=== PATIENT | male | born 1965 | race Caucasian/White ===

== ENCOUNTER 2021-09-13 08:34 | Emergency (ER) | payer MEDICARE, OTHER, SELFPAY ==
--- NOTE | 2021-09-13 08:40 | ED.MALEGU ---
HPI - Male Genitourinary General Chief complaint: Back Pain/Injury Stated complaint: kidney stones Time Seen by Provider: 09/13/21 08:37 Source: patient Mode of arrival: Ambulatory Limitations: no limitations History of Present Illness HPI Narrative: This is a 55-year-old male with history of hypertension, dyslipidemia and kidney stones. Patient states he has had 14 in the past total. Patient states that he developed left flank pain and some tingling with urination recently pain is becoming more intense. He denies fevers or chills. Denies any active nausea or vomiting. He states pain seems localized just to the left but comes run a little bit to the front. He denies any dysuria, frequency or obvious hematuria. Denies any diarrhea constipation or issues with bowel movements. He denies surgeries he did have ureteral stent with lithotripsy once in the s. He does not have a local urologist. He moved here about a year ago. Primary care is Dr. Gray. Denies tobacco, alcohol or illicit. He has not taken anything for pain today. He denies any allergies to medications. Related Data Previous Rx's Medication Instructions Recorded oxycodone 5 mg tablet 5 mg PO Q6H PRN pain #14 tabs 09/13/21 tamsulosin 0.4 mg capsule (Flomax) 0.4 mg PO DAILY #7 caps 09/13/21 Review of Systems Review of Systems ROS Unobtainable: All systems reviewed & are unremarkable except as noted in HPI and below Exam Narrative Exam Narrative: GENERAL: Alert and oriented x three, wheeze male in mild distress. HEENT: Head normocephalic, atraumatic, EOMI, pupils reactive, face symmetric, moist mucous membranes NECK: Supple, full range of motion CARDIOVASCULAR: Regular rate and rhythm without murmurs, rubs or gallops. RESPIRATORY: Breath sounds equal bilaterally, no wheezes rales or rhonchi. ABDOMEN: Soft, mild left-sided tenderness. Normoactive bowel sounds all 4 quadrants. No guarding or rebound, rigidity, no mass : Negative for bilateral CVA tenderness EXTREMITIES: Normal range of motion, no clubbing or edema. Neurovascularly intact NEUROLOGICAL: Cranial nerves II through XII grossly intact. Moving all extremities SKIN: Warm, dry, no petechiae, no rashes or lesions. Initial Vital Signs Initial Vital Signs: Vital Signs Temperature 97.9 F 09/13/21 08:41 Pulse Rate 71 09/13/21 08:41 Respiratory Rate 16 09/13/21 08:41 Blood Pressure 174/85 H 09/13/21 08:41 Pulse Oximetry 97 09/13/21 08:41 Oxygen Delivery Method 09/13/21 08:41 Course Orders Ordered: Discontinued Medications Sodium Chloride (Normal Saline 0.9%) 1,000 mls @ 1,000 mls/hr IV BOLUS ONE Stop: 09/13/21 09:48 Last Admin: 09/13/21 09:02 Dose: 1,000 mls/hr Documented By: SANDRA Ketorolac Tromethamine (Ketorolac 30 Mg/Ml Vial) 15 mg IV NOW ONE Stop: 09/13/21 08:50 Last Admin: 09/13/21 09:02 Dose: 15 mg Documented By: SANDRA Ondansetron HCl (Ondansetron 4 Mg/2 Ml Inj) 4 mg IV Q6HR PRN PRN Reason: Nausea And Vomiting Last Admin: 09/13/21 09:03 Dose: 4 mg Documented By: SANDRA Tamsulosin HCl (Tamsulosin 0.4 Mg Capsule) 0.4 mg PO NOW ONE Stop: 09/13/21 09:55 Last Admin: 09/13/21 10:09 Dose: 0.4 mg Documented By: HELGA Reevaluation(s) Reevaluation #1: Patient's pain has resolved. Reviewed his findings today. He has some cvkn-dx-kajohmdo hydro he states this feels similar is stones that he has passed previously and feels comfortable deferring CT scanning. Renal function was appropriate. He does not have any signs of infection. We discussed return precautions all questions answered. Time: 10:01 Vital Signs Vital signs: Vital Signs - 8 hr 09/13/21 08:41 Temperature 97.9 F Pulse Rate 71 Respiratory Rate 16 Blood Pressure 174/85 H Pulse Oximetry 97 Oxygen Delivery Method Room Air MDM - Male Genitourinary Lab Data Result diagrams: 09/13/21 08:58 09/13/21 08:58 Labs: Lab Results 09/13/21 09/13/21 09/13/21 Range/Units 08:52 08:58 08:58 WBC 5.5 (4.5-11.0) X10^3/uL RBC 4.56 (4.5-5.9) X10^6/uL Hgb 14.2 (13.5-17.5) g/dL Hct 42.1 (41-53) % MCV 92.4 (80-100) fL MCH 31.1 (26-34) PG MCHC 33.7 (30-36) % RDW 13.8 (11.6-14.8) % Plt Count 256 (150-400) X10^3/uL Neut % (Auto) 46.5 L (50-75) % Lymph % (Auto) 41.2 H (25-40) % [place] % (Auto) 10.4 (3-14) % Eos % (Auto) 0.9 L (2-4) % Baso % (Auto) 1.0 (0-2) % Neut # (Auto) 2600 (1346-3109) /uL Lymph # (Auto) 2300 (2540-9659) /uL [place] # (Auto) 600 (0-900) /uL Eos # (Auto) 100 (0-450) /uL Baso # (Auto) 100 (0-100) /uL Sodium 140 (137-145) mmol/L Potassium 4.3 (3.4-5.1) mmol/L Chloride 107 (98-107) mmol/L Carbon Dioxide 30 (22-32) mmol/L BUN 19 (9-20) mg/dL Creatinine 1.17 (0.66-1.25) mg/dL Estimated GFR > 60 (>60) mL/min BUN/Creatinine Ratio 16.2 (6-22) Glucose 104 H (70-100) mg/dL Calcium 8.9 (8.4-10.2) mg/dL Total Bilirubin 0.9 (0.2-1.3) mg/dL AST 34 (17-59) IU/L ALT 32 (<50) IU/L Alkaline Phosphatase 60 (38-126) U/L Total Protein 7.5 (6.3-8.2) g/dL Albumin 4.2 (3.5-5.0) g/dL Globulin 3.3 (1.7-4.1) g/dL Albumin/Globulin Ratio 1.3 (1.0-2.8) Lipase 103 (23-300) U/L Urine RBC 5-10/hpf H (0-5/HPF) Urine WBC None seen (0-5/HPF) Ur Squamous Epith Cells None seen (0-5/HPF) Urine Bacteria None seen (None) Ur Culture Indicated? Cult not indicated Urine Dip Bedside Urine Glucose Negative Bedside Urine Bilirubin - Negative Bedside Urine Ketone - Negative Urine Specific [place] 1.015 Bedside Urine Occult Blood +++ Bedside Urine pH 6.5 Bedside Urine Protein - Negative Bedside Urine Urobilinogen 0.2 Bedside Urine Nitrite - Negative Bedside Urine Leukocytes - Negative Esterase Imaging Data US - abdomen: Radiologist's Impression: [address] [address] Ultrasound Report Signed Patient: Joey Oh MR#: [id number] : 1965 Acct:[id number] Age/Sex: 55 / M Date of Service: 09/13/21 Loc: ED Accession Number: [id number] ?? Procedure: US renal complete Ordering Provider: Manasa Coles D.O. PROCEDURE:? US RENAL COMPLETE ? INDICATIONS:? LEFT FLANK PAIN; HX STONES ? TECHNIQUE:? Real-time scanning was performed of the kidneys and bladder, with image documentation.? ? COMPARISON:? None. ? FINDINGS:? ? Kidneys:? Kidneys are normal in size.? Right kidney measures 12.6 cm long; left kidney measures 14.2 cm long.? Right renal cortical thickness is 1.8 cm; left renal cortical thickness is 2 cm.? Renal cortical echotexture is normal.? No nephrolithiasis.? No suspicious solid mass lesions.? ? There is moderate to prominent left-sided hydronephrosis. ? At the inferior pole of the right kidney, a 2.1 cm simple cyst is seen. ? Bladder:? Pre-void bladder volume is 201 mL.? Post-void residual is 0 mL.? Pre-void images demonstrate no intraluminal masses or stones.? On pre-void images, neither of the ureteral jets are noted with color Doppler interrogation.? (Of note, ureteral jets may not be detectable in up to 25% of cases due to insufficient differences in specific gravity between ureteral and bladder urine).? ? Miscellaneous:? No free pelvic fluid.? IMPRESSION:? Moderate to severe left-sided hydronephrosis. ? No stones are seen on this study. ? If it would be helpful for clinical management decision making in this patient with this given history, please consider a dedicated noncontrast CT of the abdomen pelvis for further evaluation. ? ? Dictated by: Colt Carrizales M.D. on 09/13/2021 at 8:39 ? ? Approved by: Colt Carrizales M.D. on 09/13/2021 at 8:40?? MDM Narrative Medical decision making narrative: This is a 55-year-old male with history of kidney stones with acute onset of left flank pain which he states is very similar to his prior episodes of kidney stones. He typically passes them he has had 1 prior intervention the required a ureteral stent and basket retrieval remotely. Patient has some mild tenderness on abdominal exam but no other acute findings. He is positive for hematuria without signs of infection on urine dip, microscopy shows Hematuria but no signs of infection. Renal function is normal with no other major abnormalities. Patient had renal ultrasound ordered, will upgrade to CT if there appears to be renal impairment or other major lab abnormalities. Renal ultrasound shows eyio-ql-jafztpuj hydro, stone not clearly identified. Patient and I discussed this feels similar to his prior episodes where he has passed stones and defers CT imaging at this time. Plan for Flomax, pain control, Urology referral and return precautions discussed with patient. Discharge Plan Departure Patient Disposition: Home Clinical Impression: Kidney stone on right side Instructions: DI for Kidney Stones Activity Restrictions/Additional Instructions: Follow-up with urology if your symptoms do not resolve this week. You may take Tylenol up to a 1000 mg every 6 hours and/or ibuprofen up to 600 mg every 6 hours. Maximum dose of Tylenol in 24 hours is 4000 mg, maximum dose of ibuprofen in 24 hours is 2400 mg. If in adequate you may take oxycodone 1-2 tablets every 6 hours in addition to this. This medication can make you sleepy do not drive, perform hazardous activities or make any major decisions while taking it. This medication will make you constipated please take a stool softener once to twice daily until stools are soft and regular. Take Flomax once daily until gone. Prescription sent to Please return for fevers, rapidly worsening or unable to control abdominal, back or flank pain, persistent vomiting, difficulty or inability urinate or other new or concerning symptoms. Prescriptions: New tamsulosin [Flomax] 0.4 mg capsule 0.4 mg PO DAILY Qty: 7 0RF oxycodone 5 mg tablet 5 mg PO Q6H PRN (Reason: pain) Qty: 14 0RF Referrals: Ariel Gray MD [Primary Care Provider] - Juan Diego Acosta MD [Physician] - Visit Report Forms: Patient Portal/API
[2021-09-13 08:41] VITALS: BP 174/85; PULSE 71; RESP 16; TEMP 36.6; O2SAT 97; BMI 39.9
--- NOTE | 2021-09-13 08:49 | DI.US.S_ITS ---
PROCEDURE: US RENAL COMPLETE INDICATIONS: LEFT FLANK PAIN; HX STONES TECHNIQUE: Real-time scanning was performed of the kidneys and bladder, with image documentation. COMPARISON: None. FINDINGS: Kidneys: Kidneys are normal in size. Right kidney measures 12.6 cm long; left kidney measures 14.2 cm long. Right renal cortical thickness is 1.8 cm; left renal cortical thickness is 2 cm. Renal cortical echotexture is normal. No nephrolithiasis. No suspicious solid mass lesions. There is moderate to prominent left-sided hydronephrosis. At the inferior pole of the right kidney, a 2.1 cm simple cyst is seen. Bladder: Pre-void bladder volume is 201 mL. Post-void residual is 0 mL. Pre-void images demonstrate no intraluminal masses or stones. On pre-void images, neither of the ureteral jets are noted with color Doppler interrogation. (Of note, ureteral jets may not be detectable in up to 25% of cases due to insufficient differences in specific gravity between ureteral and bladder urine). Miscellaneous: No free pelvic fluid. IMPRESSION: Moderate to severe left-sided hydronephrosis. No stones are seen on this study. If it would be helpful for clinical management decision making in this patient with this given history, please consider a dedicated noncontrast CT of the abdomen pelvis for further evaluation. Dictated by: Colt Carrizales M.D. on 09/13/2021 at 8:39 Approved by: Colt Carrizales M.D. on 09/13/2021 at 8:40
[2021-09-13 09:00] LABS: RBC Urine 5-10/HPF (0-5/HPF)
[2021-09-13 09:01] LABS: Bacteria Urine None Seen; Culture Indicated Urine Cult Not Indicated; Squamous Epithelial Cell Urine None Seen (0-5/HPF); WBC Urine None Seen (0-5/HPF)
[2021-09-13] MEDS: SODIUM CHLORIDE 0.9% 1,000 ML 1000 ML IV (09:02)
[2021-09-13] MEDS: KETOROLAC 30 MG/ML VIAL 15 MG IV (09:02)
[2021-09-13] MEDS: ONDANSETRON 4 MG/2 ML INJ IV (09:03)
[2021-09-13 09:08] LABS: Add Manual Diff / Slide Review NO; Basophils Absolute Auto 100 /uL (0-100); Eosinophils Absolute Auto 100 /uL (0-450); Eosinophils Percent Auto 0.9 % (2-4); Hematocrit 42.1 % (41-53); Hemoglobin 14.2 g/dL (13.5-17.5); Lymphocytes Absolute Auto 2300 /uL (1100-4500); Lymphocytes Percent Auto 41.2 % (25-40); Mean Corpuscular HGB Conc 33.7 % (30-36); Mean Corpuscular Hemoglobin 31.1 PG (26-34); Mean Corpuscular Volume 92.4 fL (80-100); Monocytes Absolute Auto 600 /uL (0-900); Monocytes Percent Auto 10.4 % (3-14); Neutrophils Absolute Auto 2600 /uL (1500-7000); Neutrophils Percent Auto 46.5 % (50-75); Platelet Count 256 X10^3/uL (150-400); Red Blood Cell Count 4.56 X10^6/uL (4.5-5.9); Red Cell Distribution Width 13.8 % (11.6-14.8); White Blood Cell Count 5.5 X10^3/uL (4.5-11.0)
[2021-09-13 09:20] LABS: Alanine Aminotransferase 32 IU/L (<50); Albumin 4.2 g/dL (3.5-5.0); Albumin Globulin Ratio 1.3 (1.0-2.8); Alkaline Phosphatase 60 U/L (38-126); Aspartate Aminotransferase 34 IU/L (17-59); BUN Creatinine Ratio 16.2 (6-22); Bilirubin Total 0.9 mg/dL (0.2-1.3); Blood Urea Nitrogen 19 mg/dL (9-20); Calcium 8.9 mg/dL (8.4-10.2); Carbon Dioxide 30 mmol/L (22-32); Chloride 107 mmol/L (98-107); Estimated Glomerular Filt Rate > 60 mL/min (>60); Globulin 3.3 g/dL (1.7-4.1); Glucose 104 mg/dL (70-100); HEMOLYSIS < 15 (0-50); Lipase 103 U/L (23-300); Potassium 4.3 mmol/L (3.4-5.1); Sodium 140 mmol/L (137-145); Total Protein 7.5 g/dL (6.3-8.2)
[2021-09-13] MEDS: TAMSULOSIN 0.4 MG CAPSULE PO (10:09)
[2021-09-13 10:10] VITALS: BP 117/78; PULSE 64; RESP 18; O2SAT 99
== END 2021-09-13 10:17 | disposition home or self-care (01) ==
PROVIDERS: Emergency Provider Emergency Medicine; PCP Internal Medicine
DX: N20.0 Calculus of kidney (principal); Z87.442 Personal history of urinary calculi
CPT/HCPCS: 36415; 76770; 80053; 81003; 81015; 83690; 85025; 96374; 96375; 99284; J1885; J2405

== ENCOUNTER → 2021-09-19 15:00 | Outpatient (CLI) | payer MEDICARE, OTHER, SELFPAY ==
--- NOTE | 2021-09-19 | DI.RAD.S_ITS ---
PROCEDURE: XR CERVICAL SPINE 2V OR 3V INDICATIONS: PAIN TECHNIQUE: 3 view(s) of the cervical spine were acquired. COMPARISON: None. FINDINGS: Bones: No fractures or dislocations to the T1 level. The lateral masses of C1 appear intact on the odontoid view. No suspicious bony lesions. Disc space narrowing and facet arthropathy noted in the mid cervical spine. Craniovertebral relationships normal. Soft tissues: No prevertebral soft tissue swelling. IMPRESSION: Degenerative disc disease and arthropathy in the mid cervical spine Approved by: Dev Chandler M.D. on 09/19/2021 at 15:28
--- NOTE | 2021-09-19 | DI.RAD.S_ITS ---
PROCEDURE: XR LUMBAR SPINE 2-3V INDICATIONS: PAIN TECHNIQUE: 3 views of the lumbar spine were acquired. COMPARISON: None. FINDINGS: Bones: 5 [id number] vertebrae are present. There is normal bony alignment. No vertebral body compression fractures. No suspicious bony lesions. Convex right thoracolumbar scoliosis. Moderate lower lumbar and thoracolumbar junction degenerative disc disease and arthropathy. Soft tissues: Overlying bowel gas pattern is normal. No suspicious soft tissue calcifications. Right subcutaneous epidural pulse generator noted. IMPRESSION: Moderate degenerative disc disease and arthropathy Approved by: Dev Chandler M.D. on 09/19/2021 at 15:27
--- NOTE | 2021-09-19 | DI.RAD.S_ITS ---
PROCEDURE: XR SHOULDER LT MIN 2V INDICATIONS: PAIN TECHNIQUE: 3 views of the shoulder were acquired. COMPARISON: None. FINDINGS: Bones: No fractures or dislocations. No suspicious bony lesions. Visualized ribs appear intact. Mild glenohumeral joint space narrowing Soft tissues: No suspicious soft tissue calcifications. IMPRESSION: Glenohumeral joint space narrowing. No fracture or lytic lesion. Approved by: Dev Chandler M.D. on 09/19/2021 at 15:27
== END ==
PROVIDERS: PCP Internal Medicine; Referring Provider Internal Medicine; Visit Provider Internal Medicine
DX: M51.36 Other intervertebral disc degeneration, lumbar region (principal); M47.816 Spondylosis without myelopathy or radiculopathy, lumbar region; M25.512 Pain in left shoulder; M50.320 Other cervical disc degeneration, mid-cervical region, unspecified level; M47.812 Spondylosis without myelopathy or radiculopathy, cervical region; M54.51 Vertebrogenic low back pain
CPT/HCPCS: 72040; 72100; 73030